=== PATIENT | female | born 1980 | race Two or more races ===

== ENCOUNTER 2020-08-24 15:28 | Emergency (ER) | payer OTHER ==
[~2020-08-24] VITALS: Ht 152.4 cm; Wt 64.0 kg
[2020-08-24 17:00] VITALS: BP 121/63
[2020-08-24] MEDS: KETOROLAC 30 MG/ML VIAL. IM ONE (17:30)
--- NOTE | 2020-08-24 17:46 | PHYS DOC ---
Past Medical History Past Medical History: No Pertinent History Past Surgical History: No Surgical History Smoking Status: Never Smoker Alcohol Use: None General Adult EDM: Chief Complaint: DIARRHEA HPI: HPI: 40-year-old female who denies any past medical history presents the ED with complaints of subjective fever chills, loose watery stools and a posterior headache that started yesterday. States diarrhea is almost resolved, had 1 episode today. Reports mild headache at the back of her head over her occiput. Also states she every morning she has pain the bottom of her feet, this has been going on for a few months. Reports she frequently stands at work. Is vaccinated for Covid but is worried her symptoms may be Covid. Patient is Malay speaking. present at bedside and is translating, declines sport psychologist services. Review of Systems: Review of Systems: Constitutional: Denies fever or chills. [] Eyes: Denies change in visual acuity. [] HENT: Denies nasal congestion or sore throat. [] Respiratory: Denies cough or shortness of breath. [] Cardiovascular: Denies chest pain or edema. [] GI: Denies abdominal pain, nausea, vomiting, bloody stools : Denies dysuria or hematuria Musculoskeletal: Denies back pain or joint pain. [] Integument: Denies rash or diaphoresis Neurologic: Denies neck stiffness, focal weakness or sensory changes. [] Endocrine: Denies polyuria or polydipsia. [] Lymphatic: Denies swollen glands. [] Psychiatric: Denies depression or anxiety. [] Heart Score: C/O Chest Pain: No Risk Factors: Risk Factors: DM, Current or recent (<one month) smoker, HTN, HLP, family history of CAD, obesity. Risk Scores: Score 0 - 3: 2.5% MACE over next 6 weeks - Discharge Home Score 4 - 6: 20.3% MACE over next 6 weeks - Admit for Clinical Observation Score 7 - 10: 72.7% MACE over next 6 weeks - Early Invasive Strategies Current Medications: Current Medications Medications (Trade) Dose Ordered Sig/Erasmo Start Time Stop Time Status Last Admin Dose Admin Ketorolac Tromethamine (Toradol 30mg Vial) 30 mg 1X ONCE 08/24/20 17:30 08/24/20 17:31 DC Allergies: Allergies: Allergies Coded Allergies Type Severity Reaction Last Updated Verified No Known Drug Allergies 08/24/20 No Physical Exam: PE: Constitutional: Well developed, well nourished, no acute distress, non-toxic appearance. HENT: Normocephalic, atraumatic, Eyes: EOMI, conjunctiva normal, no discharge. Neck: Normal range of motion, supple, Cardiovascular: S1/2 present, regular rhythm Lungs & Thorax: Speaking in full sentences, bilateral equal chest rise, no tachypnea or increased work of breathing Abdomen: soft, no tenderness, no peritonitis or rigidity Skin: Warm, dry, no erythema, no rash. [] Extremities: No tenderness, no cyanosis, no lower extremity edema, equal DP/PT pulses, normal foot exam with no signs of arthritis Neurologic: Alert and oriented X 3, normal motor function, normal sensory function, no focal deficits noted. [] Psychologic: Affect normal, judgement normal, mood normal. [] Current Patient Data: Vital Signs: Vital Signs Date Time Temp Pulse Resp B/P (MAP) Pulse Ox O2 Delivery O2 Flow Rate FiO2 08/24/20 17:00 98.4 85 18 121/63 (82) 99 Room Air 98.4 EKG: EKG: [] Radiology/Procedures: Radiology/Procedures: [] Course & Med Decision Making: Course & Med Decision Making Pertinent Labs and Imaging studies reviewed. (See chart for details) COVID-19 CRITERIA: The patient was evaluated during the global COVID-19 pandemic, and that diagnosis was suspected/considered upon their initial presentation. Their evaluation, treatment and testing was consistent with current guidelines for patients who present with complaints or symptoms that may be related to COVID-19. Concern for mild symptoms of subjective fevers, posterior headache (reports not the worst headache of her life), and chronic foot pain. Patient is requesting Covid test, result pending. Patient is very well-appearing, hemodynamically stable. Normal foot exam. Will discharge home with strict ED return precautions were given for difficulties breathing, syncope, neurologic deficits or chest pain. Encouraged urgent outpatient follow-up with PMD and podiatry. Life-threatening processes were considered but are low suspicion at this time, given history, physical exam and ED workup. Pt was educated on all prescription medications and adverse effects. All patient's questions were answered and pt was stable at time of discharge. Life/limb-threatening differential includes but is not limited to, GI bleeding, toxigenic versus infectious diarrhea, shock, mesenteric ischemia, electrolyte abnormality, thyroid storm, toxidrome, antibiotic related, head trauma, syncope, malignancy, inflammatory bowel disease or surgical abdomen (appendicitis or diverticulitis). I spoken with the patient and her caregivers. I explained the patient's condition, diagnoses and treatment plan based on the information available to me at this time. I have answered the patient and her caregiver's questions and addressed any concerns. The patient and her caregivers have a good understanding of patient's diagnosis, condition and treatment plan as can be expected at this point. Vital signs have been stable. Patient's condition is stable and appropriate for discharge from the emergency department. Patient will pursue further outpatient evaluation with primary care physician or other designated or consulting physician as outlined in the discharge instructions. The patient and/or caregivers are agreeable to this plan of care and follow-up instructions have been explained in detail. The patient and/or caregivers have received these instructions in written form and have expressed an understanding of the discharge instructions. The patient and/or caregivers are aware that any significant change of condition or worsening of symptoms should prompt immediate return to this or the closest emergency department or call to 911. Jermain Disclaimer: Jermain Disclaimer: This electronic medical record was generated, in whole or in part, using a voice recognition dictation system. Departure Departure Impression: Primary Impression: Person under investigation for COVID-19 Additional Impressions: Chronic foot pain Headache Diarrhea Disposition: HOME / SELF CARE / HOMELESS Condition: STABLE Referrals: ENZO CRISTOBAL MD Follow-up with your primary care physician in 24 to 48 hours or FOLLOW UP WITH FAMILY MEDICINE: [address] [facility], [facility] [address] [place] [address] Patient Instructions: Diarrhea, General Headache Without Cause Additional Instructions: FOLLOW UP WITH PODIATRY: For definitive management of bilateral foot pain Podiatric Surgery [address] [facility], [facility] [address] [place] [address] Return to ED immediately if your oxygen level drops below 90% (purchase a pulse oximetry at a medical supply store), difficulties breathing including rapid breathing or increased work of breathing (skin sucking under ribs), chest pain or stroke-like symptoms (facial droop, speech changes, arm/leg weakness). EMERGENCY DEPARTMENT GENERAL DISCHARGE INSTRUCTIONS Thank you for coming to [facility] Emergency Department (ED) today and trusting us with you care. We trust that you had a positive experience in our Emergency Department. If you wish to speak to the department management, you may call the Director at [phone]. YOUR FOLLOW UP INSTRUCTIONS ARE FOLLOWS: 1. Do you have a private Doctor? If you do not have a private doctor, please ask for a resource list of physicians or clinics that may be able to assist you with follow up care. 2. The Emergency Physicain has interpreted your x-rays. The X-Ray specialist will also review them. If there is a change in the findings, you will be notified in 48 hours when at all possible. 3. A lab test or culture has been done, your results will be reviewed and you will be notified if you need a change in treatment. ADDITIONAL INSTRUCTIONS AND INFORMATION: 1. Your care today has been supervised by a physician who is specially trained in emergency care. Many problems require more than one evaluation for a complete diagnosis and treatment. We recommend that you schedule your follow up appointment as recommended to ensure complete treatment of you illness or injury. If you are unable to obtain follow up care and continue to have a problem, or if your condition worsens, we recommend that you return to the ED. 2. We are not able to safely determine your condition over the phone nor are we able to give sound medical advice over the phone. For these safety reasons, if you call for medical advice we will ask you to come to the ED for further evaluation. 3. If you have any questions regarding these discharge instructions please call the ED at [phone]. SAFETY INFORMATION: In the interest of safety, wellness, and injury prevention; we encourage you to wear your sealbelt, if you smoke; quite smoking, and we encourage family to use a protective helmet for bicycling and other sporting events that present an increased risk for head injury. IF YOUR SYMPTOMS WORSEN OR NEW SYMPTOMS DEVELOP, OR YOU HAVE CONCERNS ABOUT YOUR CONDITION; OR IF YOUR CONDITION WORSENS WHILE YOU ARE WAITING FOR YOUR FOLLOW UP APPOINTMENT; EITHER CONTACT YOUR PRIMARY CARE DOCTOR, THE PHYSICIAN WHOSE NAME AND NUMBER YOU WERE GIVEN, OR RETURN TO THE ED IMMEDIATELY. CAROLYN HERNANDEZ DO August 24, 2020 17:46
--- NOTE | 2020-08-24 18:55 | EKG ---
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
== END 2020-08-24 18:15 | disposition home or self-care (01) ==
LOC: ER 15:28
DX: R51.9 Headache, unspecified (principal); Z20.822 Contact with and (suspected) exposure to COVID-19; R19.7 Diarrhea, unspecified; M79.673 Pain in unspecified foot; G89.29 Other chronic pain
CPT/HCPCS: 93005; 96372; 99284; J1885; U0003

== ENCOUNTER 2021-08-13 16:09 | Emergency (ER) | payer OTHER ==
[~2021-08-13] VITALS: Ht 154.9 cm; Wt 61.2 kg
[2021-08-13 16:28] VITALS: BP 123/76
[2021-08-13] MEDS ORDERED: diphenhydrAMINE 50 MG/ML VIAL IM ONE (18:00)
[2021-08-13] MEDS ORDERED: DEXAMETHASONE SOD PHOS 20 MG/5 ML VIAL. IM ONE (18:00)
--- NOTE | 2021-08-13 18:08 | PHYS DOC ---
Past Medical History Past Medical History: No Pertinent History Additional Past Medical Histor: denies Past Surgical History: No Surgical History Additional Past Surgical Histo: denies Smoking Status: Never Smoker Alcohol Use: None General Adult EDM: Chief Complaint: ALLERGIES HPI: HPI: Patient is a 41 year old female who presents with rash on her upper shoulders, neck and face with itchy eyes. Patient reports this happened 1 other time approximately 2 months ago. She is unaware of any triggers or inciting events. When she was seen last, she received a "shot" that improved her symptoms. Patient has no other complaints at this time. Review of Systems: Review of Systems: ROS negative or noncontributory except as mentioned in HPI. Heart Score: C/O Chest Pain: No Current Medications: Current Medications Medications (Trade) Dose Ordered Sig/Erasmo Start Time Stop Time Status Last Admin Dose Admin Dexamethasone Sodium Phosphate (Decadron) 12 mg 1X ONCE 08/13/21 18:00 08/13/21 18:01 DC Diphenhydramine HCl (Benadryl) 50 mg 1X ONCE 08/13/21 18:00 08/13/21 18:01 DC Allergies: Allergies: Allergies Coded Allergies Type Severity Reaction Last Updated Verified No Known Drug Allergies 08/24/20 No Physical Exam: PE: Constitutional: Well developed, well nourished, no acute distress, non-toxic a ppearance. HENT: Normocephalic, atraumatic, bilateral external ears normal, oropharynx moist, no oropharyngeal swelling, no macroglossia, nose normal. Eyes: PERRL, EOMI, conjunctiva normal, no discharge, no periorbital swelling, periorbital skin dry and flaking.. Neck: Normal range of motion, no tenderness, supple, no stridor. Lungs & Thorax: Equal thoracic expansion, no increased work of breathing. Skin: Skin is pink, dry and flaking across the neck and upper shoulders with some areas of excoriation. Skin otherwise warm, dry, no erythema. Extremities: No cyanosis, no clubbing, ROM intact, no edema. Neurologic: Alert and oriented x4, normal motor function, normal sensory function, no focal deficits noted. Current Patient Data: Vital Signs: Vital Signs Date Time Temp Pulse Resp B/P (MAP) Pulse Ox O2 Delivery O2 Flow Rate FiO2 08/13/21 16:28 98.0 75 18 123/76 92 96 Room Air 98.0 Course & Med Decision Making: Course & Med Decision Making Pertinent Labs and Imaging studies reviewed. (See chart for details) Patient stated that she needed to leave the emergency department before receiving medications. Medications were switched to p.o. and sent to her phar glenn of choice. Unsure of patient's symptoms improved secondary to her desiring to leave the emergency department. Return precautions were provided. Patient understands and is agreeable to discharge plan. Dragon Disclaimer: Dragon Disclaimer: This electronic medical record was generated, in whole or in part, using a voice recognition dictation system. Departure Departure Impression: Primary Impression: Allergic dermatitis Disposition: HOME / SELF CARE / HOMELESS Condition: STABLE Referrals: UNKNOWN PCP NAME (PCP) Additional Instructions: [facility] Hours: Faiza Perry PA-C Tuesday - Tuesday [id number]aryl[address] Blackman 8:00 am - 5:00 [place] [address] EMERGENCY DEPARTMENT GENERAL DISCHARGE INSTRUCTIONS Thank you for coming to [facility] Emergency Department (ED) today and trusting us with you care. We trust that you had a positive experience in our Emergency Department. If you wish to speak to the department management, you may call the director at . YOUR FOLLOW UP INSTRUCTIONS ARE FOLLOWS: 1. Follow up with your primary care doctor. If you do not have a primary doctor, please ask for a resource list of physicians or clinics that may be able to assist you with follow up care. 2. The emergency provider has interpreted your imaging studies, if any were ordered. The radiology plant technical specialist also reviewed them. If there is a change in the findings, you will be notified in 48 hours when at all possible. 3. If a lab test or culture has been done, your results will be reviewed and you will be notified if you need a change in treatment. 4. Follow instructions verbalized to you and refer to the printouts if needed. ADDITIONAL INSTRUCTIONS AND INFORMATION: 1. Your care today has been supervised by a physician who is specially trained in emergency care. Many problems require more than one evaluation for a complete diagnosis and treatment. We recommend that you schedule your follow up appointment as recommended to ensure complete treatment of you illness or injury. If you are unable to obtain follow up care and continue to have a problem, or if your condition worsens, we recommend that you return to the ED. 2. We are not able to safely determine your condition over the phone nor are we able to give sound medical advice over the phone. For these safety reasons, if you call for medical advice we will ask you to come to the ED for further evaluation. 3. If you have any questions regarding these discharge instructions please call the ED at . SAFETY INFORMATION: In the interest of safety, wellness, and injury prevention; we encourage you to wear your seat belt, if you smoke; quite smoking, and we encourage family to use a protective helmet for bicycling and other sporting events that present an increased risk for head injury. IF YOUR SYMPTOMS WORSEN OR NEW SYMPTOMS DEVELOP, OR YOU HAVE CONCERNS ABOUT YOUR CONDITION; OR IF YOUR CONDITION WORSENS WHILE YOU ARE WAITING FOR YOUR FOLLOW UP APPOINTMENT; EITHER CONTACT YOUR PRIMARY CARE DOCTOR, THE PHYSICIAN WHOSE NAME AND NUMBER YOU WERE GIVEN, OR RETURN TO THE ED IMMEDIATELY. Scripts Cetirizine Hcl (ZYRTEC) 10 Mg Tablet 1 TAB PO DAILY, #30 TAB 2 Refills Prov: JEANETTE MARQUEZ 08/13/21 Diphenhydramine Hcl (BENADRYL ALLERGY) 25 Mg Tablet 2 TAB PO QHS for 3 Days, #6 TAB 0 Refills Prov: JEANETTE MARQUEZ 08/13/21 Dexamethasone (Decadron) 6 Mg Tablet 2 TAB PO ONCE for 1 Day, #2 TAB 0 Refills Prov: JEANETTE MARQUEZ 08/13/21 JEANETTE MARQUEZ August 13, 2021 18:08
[2021-08-13] MEDS ORDERED: CETI10TA74 PO (18:10)
[2021-08-13] MEDS ORDERED: DIPH25TA64 PO (18:10)
[2021-08-13] MEDS ORDERED: DEXA6TAB6 PO (18:10)
== END 2021-08-13 18:10 | disposition home or self-care (01) ==
LOC: ER 16:09
DX: L23.9 Allergic contact dermatitis, unspecified cause (principal)
CPT/HCPCS: 99283